=== PATIENT | female | born 1975 | race Caucasian/White ===

== ENCOUNTER 2024-10-25 08:53 | Emergency (ER) | payer BC ==
[~2024-10-25] VITALS: Ht 160 cm; Wt 80.3 kg
[~2024-10-25 08:53] MED LIST: ALBUTEROL SULF8.5 GM INH; BUSPIRONE HCL10 MG PO; CLARITIN10 M2 PO; IBUPROFEN200 MG PO; IBUPROFEN800 MG PO; MULTI VITAMIN1 EACH PO; PERCOCET 5-3251 EACH PO; PRILOSEC20 MG PO; SUDOGEST60 MG PO; TYLENOL EXTRA500 MG PO
[2024-10-25] MEDS ORDERED: FLUOXETINE HCL20 MG PO (09:06)
[2024-10-25] MEDS ORDERED: FLUTICASONE PRO16 GM NAS (09:07)
[2024-10-25] MEDS ORDERED: ALBUTEROL/IPRATROPIUM 3 ML NEB INH PRN (09:15)
[2024-10-25] MEDS ORDERED: ACETAMINOPHEN 500 MG TAB PO ONE (09:30)
[2024-10-25] MEDS ORDERED: predniSONE 20 MG TAB PO ONE (09:30)
[2024-10-25] MEDS ORDERED: ONDANSETRON 4 MG TAB ODT SL ONE (09:30)
[2024-10-25] MEDS ORDERED: predniSONE 20 MG TAB ONE (09:45)
[2024-10-25] MEDS ORDERED: VENTOLIN HFA18 GM INH (11:04)
[2024-10-25] MEDS ORDERED: ZITHROMAX250 MG PO (11:04)
[2024-10-25] MEDS ORDERED: PREDNISONE20 MG PO (11:04)
[2024-10-25] MEDS ORDERED: ALBUTEROL2.5 MG/3 M INH (11:04)
[2024-10-25 11:15] VITALS: BP 120/81
[2024-10-25] MEDS ORDERED: AZITHROMYCIN 250 MG TAB PO ONE (11:15)
== END 2024-10-25 11:15 | disposition home or self-care (01) ==
LOC: ED 08:53
DX: J45.909 Unspecified asthma, uncomplicated (principal); Z88.8 Allergy status to other drugs, medicaments and biological substances; Z88.5 Allergy status to narcotic agent; Z88.1 Allergy status to other antibiotic agents; Z91.011 Allergy to milk products; Z79.899 Other long term (current) drug therapy
CPT/HCPCS: 71045; 80053; 83735; 85025; 94640; 99285-25; A9270; J7512